=== PATIENT | female | born 1995 | race Caucasian/White ===

== ENCOUNTER 2020-10-20 14:19 | Emergency (ER) | payer OTHER ==
[~2020-10-20] VITALS: Ht 167.6 cm; Wt 69.9 kg
[2020-10-20 14:24] VITALS: BP 134/74
--- NOTE | 2020-10-20 16:30 | NUR ---
PT RETURNED FROM CT
--- NOTE | 2020-10-20 16:46 | NUR ---
XR AT [facility]
--- NOTE | 2020-10-20 17:47 | NUR ---
Patient given discharge instructions and Rx, they have confirmed that they understand the instructions. Patient ambulatory with steady gait. NAD, all questions answered appropriately, denies additional needs at this time. No personal belongings left in room after discharge.
== END 2020-10-20 17:50 | disposition home or self-care (01) ==
LOC: ED 16:05
DX: S16.1XXA Strain of muscle, fascia and tendon at neck level, initial encounter (principal); S90.111A Contusion of right great toe without damage to nail, initial encounter; R06.02 Shortness of breath; V59.49XA Driver of pick-up truck or van injured in collision with other motor vehicles in traffic accident, initial encounter; Y93.89 Activity, other specified; Y92.410 Unspecified street and highway as the place of occurrence of the external cause; Y99.8 Other external cause status
CPT/HCPCS: 71045; 72125; 99284